=== PATIENT | female | born 1950 | race Caucasian/White ===

== ENCOUNTER 2024-03-25 16:01 | Emergency (ER) | payer MEDICARE ==
[~2024-03-25] VITALS: Ht 167.6 cm; Wt 85.0 kg
[2024-03-25 16:02] VITALS: O2SAT 96
[2024-03-25 16:07] VITALS: BP 169/71; PULSE 97; RESP 18; TEMP 98.1; O2SAT 96
[2024-03-25] MEDS ORDERED: LIDOCAINE HCL 1% 20ML VIAL INFIL ONE (17:15)
== END 2024-03-25 18:43 | disposition home or self-care (01) ==
LOC: ER 16:01
DX: S81.812A Laceration without foreign body, left lower leg, initial encounter (principal); I10 Essential (primary) hypertension; X58.XXXA Exposure to other specified factors, initial encounter; Y93.89 Activity, other specified; Y92.89 Other specified places as the place of occurrence of the external cause; Y99.8 Other external cause status
CPT/HCPCS: 99282; 12004; J3490